=== PATIENT | male | born 1960 | race Caucasian/White ===

== ENCOUNTER → 2020-10-10 | Outpatient (CLI) | payer BC ==
[2015-02-04 12:18] VITALS: BP 129/83
[~2020-10-10] MED LIST: PERCOCET 325 MG1 TA2 PO; ULTRAM50 M1 PO; ZITHROMAX Z PA250 MG PO
== END ==
LOC: RAD 10:46
DX: M50.122 Cervical disc disorder at C5-C6 level with radiculopathy (principal)

== ENCOUNTER 2020-10-30 09:54 | Outpatient (RCR) | payer BC ==
[2015-02-04 12:18] VITALS: BP 129/83
== END 2020-11-08 17:00 | disposition still patient (30) ==
LOC: PT 09:54
DX: M54.12 Radiculopathy, cervical region (principal)

== ENCOUNTER → 2023-03-11 | Outpatient (CLI) | payer MEDICARE, OTHER ==
[2023-03-11 09:45] LABS: POTASSIUM 4.2 mmol/L (3.5-5.1)
[2023-03-11 09:46] LABS: CALCIUM 9.3 mg/dL (8.3-10.5)
[2023-03-11 09:53] LABS: MAGNESIUM 2.3 mg/dL (1.60-2.60)
== END ==
LOC: LAB 08:49
PROVIDERS: Nurse Practitioner Family
DX: I10 Essential (primary) hypertension (principal)

== ENCOUNTER 2023-04-10 07:58 | Outpatient (RCR) | payer MEDICARE, OTHER | END 2023-05-08 | disposition home or self-care (01) | LOC: CARDREHAB | DX: I50.22 Chronic systolic (congestive) heart failure (principal) ==

== ENCOUNTER → 2024-03-22 | Outpatient (CLI) | payer MEDICARE, OTHER ==
[2024-03-22 15:03] LABS: BASO # 0.01 K/mm3 (0.02-0.10); EOS # 0.07 K/mm3 (0.04-0.40); EOS % 0.8 % (0.0-4.0); HEMATOCRIT 48.8 % (42.0-52.0); HEMOGLOBIN 15.7 g/dL (13.5-18.0); LYMPH# 2.29 K/mm3 (1.50-4.00); MEAN CELL VOLUME 99 fl (78-100); MEAN CORPUSCULAR HEMOGLOBIN 32 pg (27-31); MEAN CORPUSCULAR HGB CONC 32 g/dL (33-37); MEAN PLATELET VOLUME 8.6 fl (7.4-10.4); MONO # 0.69 K/mm3 (0.20-0.80); NEU # 6.08 K/mm3 (1.40-6.50); PLATELET COUNT 310 K/mm3 (130-400); RED BLOOD COUNT 4.92 M/mm3 (4.20-5.60); RED CELL DISTRIBUTION WIDTH 12.3 % (11.5-14.5); WHITE BLOOD COUNT 9.2 K/mm3 (4.8-10.8)
[2024-03-22 15:08] LABS: ALBUMIN 3.9 g/dL (3.4-4.8)
[2024-03-22 15:10] LABS: CALCIUM 9.5 mg/dL (8.3-10.5)
[2024-03-22 15:11] LABS: TOTAL PROTEIN 6.7 g/dL (6.2-8.1)
[2024-03-22 15:13] LABS: TOTAL BILIRUBIN 0.7 mg/dL (0.2-1.2)
== END ==
LOC: LAB 14:49
PROVIDERS: Student in an Organized Health Care Education/Training Program
DX: I48.0 Paroxysmal atrial fibrillation (principal)

== ENCOUNTER → 2024-07-09 | Outpatient (CLI) | payer MEDICARE, OTHER ==
[2024-07-09 11:39] LABS: BASO # 0.02 K/mm3 (0.02-0.10); EOS # 0.06 K/mm3 (0.04-0.40); EOS % 0.7 % (0.0-4.0); HEMATOCRIT 52.3 % (42.0-52.0); HEMOGLOBIN 17.2 g/dL (13.5-18.0); LYMPH# 1.55 K/mm3 (1.50-4.00); MEAN CELL VOLUME 97 fl (78-100); MEAN CORPUSCULAR HEMOGLOBIN 32 pg (27-31); MEAN CORPUSCULAR HGB CONC 33 g/dL (33-37); MEAN PLATELET VOLUME 8.7 fl (7.4-10.4); MONO # 0.75 K/mm3 (0.20-0.80); NEU # 6.53 K/mm3 (1.40-6.50); PLATELET COUNT 347 K/mm3 (130-400); RED BLOOD COUNT 5.39 M/mm3 (4.20-5.60); RED CELL DISTRIBUTION WIDTH 12.3 % (11.5-14.5); WHITE BLOOD COUNT 8.9 K/mm3 (4.8-10.8)
[2024-07-09 11:45] LABS: ALBUMIN 4.2 g/dL (3.4-4.8)
[2024-07-09 11:46] LABS: CALCIUM 9.9 mg/dL (8.3-10.5)
[2024-07-09 11:47] LABS: TOTAL PROTEIN 7.7 g/dL (6.2-8.1)
[2024-07-09 11:49] LABS: TOTAL BILIRUBIN 0.9 mg/dL (0.2-1.2)
[2024-07-09 11:54] LABS: MAGNESIUM 1.9 mg/dL (1.60-2.60)
[2024-07-09 14:05] LABS: URINE APPEARANCE CLEAR (CLEAR); URINE BILIRUBIN NEGATIVE (NEGATIVE); URINE BLOOD TRACE-LYSED (NEGATIVE); URINE COLOR YELLOW (YELLOW); URINE GLUCOSE 2+ (NEGATIVE); URINE KETONE TRACE (NEGATIVE); URINE LEUKOCYTE ESTERASE NEGATIVE (NEGATIVE); URINE NITRATE NEGATIVE (NEGATIVE); URINE PROTEIN(semi-quant) NEGATIVE (NEGATIVE)
[2024-07-09 14:06] LABS: URINE MUCUS PRESENT (NOT PRESENT)
[2024-07-09 23:08] LABS: FOLATE (FOLIC ACID) 7.3 ng/mL (2.0-20.0)
[2024-07-14 03:07] LABS: VITAMIN B1 239.9 nmol/L (())
== END ==
LOC: LAB 11:15
PROVIDERS: Internal Medicine
DX: Z12.5 Encounter for screening for malignant neoplasm of prostate (principal); E78.2 Mixed hyperlipidemia; R73.03 Prediabetes; I48.91 Unspecified atrial fibrillation; K90.9 Intestinal malabsorption, unspecified

== ENCOUNTER → 2024-07-28 | Outpatient (CLI) | payer MEDICARE, OTHER | LOC: RAD 11:23 | DX: R05.9 Cough, unspecified (principal) ==

== ENCOUNTER → 2024-08-02 | Day surgery (SDC) | payer MEDICARE, OTHER ==
[~2024-08-02] MED LIST changes: +Lidocaine PF 2% (20 MG/ML) 5 ML VIAL ONE; +Phenylephrine 10 MG/ML VIAL IV ONE
== END ==
LOC: MSO 08:00
DX: Z12.11 Encounter for screening for malignant neoplasm of colon (principal); K57.30 Diverticulosis of large intestine without perforation or abscess without bleeding; K64.4 Residual hemorrhoidal skin tags; F17.210 Nicotine dependence, cigarettes, uncomplicated; Z80.0 Family history of malignant neoplasm of digestive organs; Z86.73 Personal history of transient ischemic attack (TIA), and cerebral infarction without residual deficits; Z79.01 Long term (current) use of anticoagulants
CPT/HCPCS: 00812; J2371; J2704; J7120